=== PATIENT | male | born 1940 | race Caucasian/White ===

== ENCOUNTER 2016-10-29 13:38 | Day surgery (SDC) | payer OTHER ==
[~2016-10-29 13:38] MED LIST: IOTHALAMATE MEG (CONRAY) 50 ML VIAL IV ONE
[2016-10-29] MEDS ORDERED: INDOMETHACIN 50 MG SUPP PR ONE (14:00)
[2016-10-29] MEDS ORDERED: levOFLOXACIN 500 MG/DEXTROSE 100 ML IV ONE (14:00)
[2016-10-29] MEDS ORDERED: PROPOFOL/EMULSION 500 MG/50 ML BOTTLE IV ONE (14:52)
[2016-10-29] MEDS ORDERED: ROCURONIUM 50 MG/5 ML VIAL ONE (14:52)
[2016-10-29] MEDS ORDERED: fentaNYL 100 MCG/2 ML INJ ONE (14:52)
[2016-10-29] MEDS ORDERED: ONDANSETRON 4 MG/2 ML VIAL ONE (15:18)
--- NOTE | 2016-10-29 19:54 | GPN ---
[f rep st] PROCEDURE NOTE DATE OF PROCEDURE: 10/29/2016 PROCEDURE: Endoscopic retrograde cholangiopancreatography with stent removal, removal of debris. INDICATION: Mr. Coronado is a 76-year-old male who presents for evaluation of a bile leak. He had a recent cholecystectomy and after the procedure was noted to have a bile leak and a stent was placed. CONSENT: Risks, benefits, and alternatives of the procedure were discussed in great detail with the patient. Risks of infection, bleeding, perforation, sedation and pancreatitis were discussed. All questions were answered. Informed consent was obtained. MEDICATIONS: General anesthesia. Please see Anesthesia record for details. Levaquin 500 mg IV x1. Rectal indomethacin 100 mg x1. ESTIMATED BLOOD LOSS: None. ENDOSCOPIC RETROGRADE CHOLANGIOPANCREATOGRAPHY EXAM: The Olympus duodenoscope was introduced via the mouth and advanced to the second portion of the duodenum. Emanating from the ampulla was a self expandable, covered stent. This was snared and removed through the mouth. The scope was then reintroduced into the mouth and advanced to the second portion of the duodenum. The ampulla was brought into view and had evidence of a large biliary sphincterotomy. Using a [employer] Spectrum 0.035 inch wire, the wire was advanced into the common bile duct and intrahepatics using the wire guided technique. Multiple balloon sweeps were made with a 12-15mm balloon with removal of a significant amount of debris. Anoccluson cholangiogram was performed and no bile leak was noted. Excess air was suctioned and the procedure was terminated. IMPRESSION: 1. No evidence of bile leak. 2. Stent removal. 3. Extraction of debris. RECOMMENDATIONS: 1. Clear liquid diet until tomorrow. 2. Continue previous medications. /[id number]/MODL MTDD
--- NOTE | 2016-10-29 23:10 | DX ---
Fluoroscopy for ERCP examination. History: Previous cholecystectomy. Previous abdominal pain. Findings: Fluoroscopy time: 1.8 minutes, Estimated dose: 39.35 mGy A single digital image was saved demonstrates endoscopy scope in the duodenum. A catheter is directed into the biliary system. Impression: Fluoroscopy provided for ERCP procedure.
== END 2016-10-29 16:40 | disposition home or self-care (01) ==
LOC: FSGY 13:38
PROVIDERS: ATTEND Internal Medicine Gastroenterology
PROC: 0FPB80Z Removal of Drainage Device from Hepatobiliary Duct, Via Natural or Artificial Opening Endoscopic (ICD-10-PCS; 2016-10-29)
PROC: 0FC98ZZ Extirpation of Matter from Common Bile Duct, Via Natural or Artificial Opening Endoscopic (ICD-10-PCS; principal; 2016-10-29 13:00)
DX: K83.2 Perforation of bile duct (principal); K91.89 Other postprocedural complications and disorders of digestive system; Z86.718 Personal history of other venous thrombosis and embolism; Z85.46 Personal history of malignant neoplasm of prostate
CPT/HCPCS: J1956; J2405; J2704; J3010; Q9961

== ENCOUNTER → 2018-10-05 | Outpatient (CLI) | payer OTHER | LOC: FCPNEURO 21:00 | PROVIDERS: ATTEND Psychiatry & Neurology Sleep Medicine | DX: G47.33 Obstructive sleep apnea (adult) (pediatric) (principal); G47.61 Periodic limb movement disorder; G47.34 Idiopathic sleep related nonobstructive alveolar hypoventilation ==

== ENCOUNTER → 2018-10-20 | Outpatient (CLI) | payer OTHER | LOC: FCPNEURO 23:38 | PROVIDERS: ATTEND Psychiatry & Neurology Sleep Medicine | DX: G47.33 Obstructive sleep apnea (adult) (pediatric) (principal) ==